=== PATIENT | female | born 1955 | race Caucasian/White ===

== ENCOUNTER 2024-06-23 07:10 | Day surgery (SDC) | payer MEDICARE, MEDICAID ==
[2024-06-15 10:08] LABS: BASOPHILS # (AUTO) 0.1 X10'3 (0-0.2); EOSINOPHILS # (AUTO) 0.2 X10'3 (0-0.9); LYMPHOCYTES # (AUTO) 1.9 X10'3 (1.1-4.8); LYMPHOCYTES % (AUTO) 27.7 % (21-51); MEAN CORPUSCULAR HEMOGLOBIN 32.1 PG (27.0-31.0); MEAN CORPUSCULAR HGB CONC 33.5 g/dL (33.0-36.5); MEAN CORPUSCULAR VOLUME 95.7 FL (78-98); MEAN PLATELET VOLUME 7.8 FL (7.4-10.4); MONOCYTES # (AUTO) 0.8 X10'3 (0-0.9); MONOCYTES % (AUTO) 10.9 % (2-12); NEUTROPHILS % (AUTO) 57.4 % (42-75); PRE OP HEMATOCRIT 41.7 % (35.0-45.0); PRE OP PLATELET COUNT 353 X10'3 (140-440); PRE OP WHITE BLOOD COUNT 6.9 10'3 (4.8-10.8); RED BLOOD COUNT 4.35 X10'6 (4.20-5.60); RED CELL DISTRIBUTION WIDTH 13.6 % (11.5-14.5)
[2024-06-15 10:28] LABS: ALBUMIN 3.7 G/DL (3.4-5.0); ALBUMIN/GLOBULIN RATIO 0.9 (1.1-1.5); ALKALINE PHOSPHATASE 56 IU/L (46-116); BLOOD UREA NITROGEN 12 MG/DL (7-18); BUN/CREATININE RATIO 15.2 (10.0-20.0); CALCIUM 9.3 MG/DL (8.5-10.1); CHLORIDE 107 MMOL/L (99-107); CREATININE 0.79 MG/DL (0.40-0.90); PRE OP ALT 22 U/L (30-65); PRE OP ANION GAP 4 (8-16); PRE OP AST 17 U/L (10-37); PRE OP BILIRUB, TOTAL 0.8 MG/DL (0.0-1.0); PRE OP GLUCOSE 88 MG/DL (70-104); PRE OP POTASSIUM 4.5 MMOL/L (3.4-5.1); PRE OP SODIUM 142 MMOL/L (135-145); TOTAL CARBON DIOXIDE 30.6 MMOL/L (24-32); TOTAL PROTEIN 7.6 G/DL (6.4-8.2); eGFR 73 ML/MIN
[~2024-06-23] VITALS: Ht 175.3 cm; Wt 75.0 kg
[~2024-06-23 07:10] MED LIST: CELE400C16 PO; FLUT1BLS4 INH; ringers solution, lacted 1,000 ML IV SCH
[2024-06-23 07:30] VITALS: BP 123/79; PULSE 68; RESP 16; TEMP 97.3; O2SAT 96
[2024-06-23] MEDS: famotidine 20mg tablet PO ONE (08:32)
[2024-06-23] MEDS ORDERED: morphine 4 MG/ML inj SYRINge IV PRN (08:40)
[2024-06-23] MEDS ORDERED: morphine 2 MG/ML inj. syringe IV PRN (08:40)
[2024-06-23] MEDS ORDERED: ringers solution, lacted 1,000 ML IV SCH (08:40)
[2024-06-23] MEDS ORDERED: labetalol 20mg/4ml (5mg/ml) syringe IV PRN (08:40)
[2024-06-23] MEDS ORDERED: ondansetron/PF 4mg/2ml inj IV PRN (08:40)
[2024-06-23] MEDS ORDERED: sevoflurane 250ml liquid IH ONE (09:40)
[2024-06-23] MEDS ORDERED: fentaNYL/PF 50MCG/1 ML 2ML syringe ONE (09:47)
[2024-06-23] MEDS ORDERED: midazolam 1 mg/ML 2ml injection ONE (09:47)
[2024-06-23] MEDS ORDERED: acetaminophen 1,000mg/100ml IV 100 ML IV ONE (09:55)
[2024-06-23] MEDS ORDERED: labetalol 20mg/4ml (5mg/ml) syringe IV ONE (10:01)
[2024-06-23] MEDS ORDERED: propofol inj 20 ML IV ONE (10:03)
[2024-06-23] MEDS ORDERED: LIDOcaine 2% (20mg/ml) 5ml vial ONE (10:03)
[2024-06-23] MEDS ORDERED: ondansetron/PF 4mg/2ml inj ONE (10:11)
[2024-06-23 10:31] VITALS: BP 150/94; PULSE 76; RESP 16; O2SAT 100
[2024-06-23 10:40] VITALS: BP 136/70; PULSE 81; RESP 14; O2SAT 97
[2024-06-23 10:50] VITALS: BP 118/73; PULSE 71; RESP 16; O2SAT 93
[2024-06-23 11:00] VITALS: BP 121/75; PULSE 73; RESP 18; O2SAT 95
[2024-06-23 11:10] VITALS: BP 129/71; PULSE 71; RESP 16; O2SAT 95
== END 2024-06-23 11:21 | disposition home or self-care (01) ==
LOC: PAS 07:10
PROVIDERS: ATTEND Internal Medicine Critical Care Medicine
DX: R91.8 Other nonspecific abnormal finding of lung field (principal); J84.10 Pulmonary fibrosis, unspecified; J98.4 Other disorders of lung; J43.9 Emphysema, unspecified; F41.9 Anxiety disorder, unspecified; Z79.01 Long term (current) use of anticoagulants; Z79.899 Other long term (current) drug therapy; Z98.890 Other specified postprocedural states; Z98.51 Tubal ligation status
CPT/HCPCS: 31624; 31627; 31628; 31629; 31653; 36415; 71250; 80053; 82948; 85025; 87015; 87070; 87116; 87206; 88341; 88342; 93005; A4618; J0131; J1100; J2003; J2250; J2405; J2704; J3010; J3490; J7120; Z7506; Z7512; Z7610; 31622; 31625; 31626; 31635; 31654; 88173; 88305